=== PATIENT | female | born 1995 | race African-American/Black ===

== ENCOUNTER 2017-07-16 17:36 | Emergency (ER) | payer SELFPAY ==
[2017-07-16 18:13] LABS: Bilirubin Negative (Negative); Blood, Urine Negative (Negative); Glucose, Urine (Dipstick) Negative (Negative); Ketone, Urine Negative (Negative); Nitrite Negative (Negative); Protein, Urine (Dipstick) 30 mg/dL (Neg-Trace); Urobilinogen 0.2 mg/dL (0.2-1.0)
[2017-07-16 18:15] LABS: Bacteria/HPF 1+ HPF (None Seen); Hyaline Casts/LPF 0-3 HYALINE CAST LPF (0-3 Hyaline); RBC/HPF 0-3 HPF (0-3); WBC/HPF 0-3 HPF (0-3)
== END 2017-07-16 19:00 | disposition home or self-care (01) ==
LOC: ERS 17:36
DX: M54.5 Low back pain (principal); V43.52XA Car driver injured in collision with other type car in traffic accident, initial encounter
CPT/HCPCS: 81003; 81015; 81025; 99284

== ENCOUNTER 2018-12-01 15:42 | Inpatient (IN) | payer OTHER ==
--- NOTE | 2018-12-01 17:03 | PDOC.FPROB ---
FMR OB H&P: HPI - History of Present Illness Chief Complaint: Elevated BPs at [facility] Indentification: 23yo @35.4wk by 8.2wk US History of Present Illness: 23yo @35.4wk by 8.2wk US presents for elevated BPs at [facility] appt today. BPs in clinic: 140/90, 140, 92. Urine remarkable for trace protein. No hx of HTN. She endorses new hand edema, difficulty putting rings on as well as foot edema to midshin. She has had a 38lb wt gain this . Fundal height today 40. She had a growth US at [facility] at 74% for expected age. Primary Care Physician: Dr Louis FMR OB H&P: Current - Care : 1 Para: 0 Gestational age: 35.4wks Dating Criteria: 8.2wk US Total weight gain: 38lb - OB Labs Blood type: unknown RH: unknown Antibody Screen: unknown HIV: unknown RPR: unknown HepBsAg: unknown Quad screen: unknown Urine drug screen: not done (no records) Gonorrhea: unknown GBS: unknown - First Trimester Ultrasound First trimester: 8.2wks FMR OB H&P: History - Past Medical History PMH: denies - Surgical History Sx History: denies - Social History Social History: denies t/e/d - Family History Family History: HTN-Father FMR OB H&P: Medications - Current Home Medications: Medication Instructions Recorded Confirmed Type Pnv,Calcium 72/Iron/Folic Acid 1 capsule PO DAILY 12/01/18 12/01/18 History [ Plus Tablet] Ranitidine HCl 75 mg PO PRN PRN 12/01/18 12/01/18 History Allergies/Adverse Reactions: Allergies Allergy/AdvReac Type Severity Reaction Status Date / Time No Known Allergies Allergy Verified 12/01/18 18:08 FMR OB H&P: ROS - Review of Systems General: denies: fever/chills Eyes: denies: vision changes, double vision, scotomas, floaters Cardiovascular: reports: edema. denies: chest pain, palpitation Gastrointestinal: denies: abdominal pain Genitourinary (Female): denies: dysuria, vaginal pain, vaginal bleeding Neurologic: denies: seizures Breast: denies: skin changes FMR OB H&P: Vital Signs - Heart Tones Variability: moderate Acceleration: present Deceleration: absent [place] contractions every: uterine irritability FMR OB H&P: Physical Exam - Physical Exam General: NAD, awake, alert and oriented HEENT: normocephalic and atraumatic, PERRLA, EOMI Neck: supple, FROM Heart: RRR, normal S1/S2 General: CTAB, no respiratory distress, no wheezing Abdomen: soft, gravid Neurological: DTR +4, no tremor, no focal deficit Skin: no rash, good tugor, capillary refill <2 seconds Lymphatic: no unusual bruising or bleeding Psychiatric: intact recent and remote memory, good judgement and insight, normal mood and affect FMR OB H&P: Results - Imaging Imaging: BPP 8/8, BANDAR 29 (polyhydramnios) FMR OB H&P: A/P - Problem List (1) Elevated blood pressure affecting in third trimester, antepartum Current Visit: Yes Status: Acute Code(s): O16.3 - UNSPECIFIED MATERNAL HYPERTENSION, THIRD TRIMESTER Disposition: 23yo @35.4wk by 8.2wk US Elevated BPs in 3T - No hx of HTN - Ordered CBC, CMP, Urine protein/Cr, Uric acid - BPs elevated on L&D: 142-162/79-90 sIUP -NST reactive: 140-150/min-mod/accels Polyhydramnios -BANDAR 29 -BPP 8/8 otherwise, vertex presentation GERD -Can continue home ranitidine Discussed w/ Dr. Shelton Discussion: Date/Time: 12/01/18 4513 This H&P was discussed with [] and [] who agree with the above documentation and plan. Addendum - Attending - Attending Attestation Date/Time: 12/02/18 3260 I personally evaluated the patient and discussed the management with Roberto Dennison, and Cody yesterday afternoon. I agree with the History, Examination, Assessment and Plan documented above with any addition or exceptions noted below.
[2018-12-01 18:33] LABS: #Monocytes 0.8 thou/uL (0.11-0.59); #Neutrophils 4.4 thou/uL (1.40-6.50); %Basophils 0.5 % (0.0-1.0); %Eosinophils 0.2 % (0.0-10.0); %Lymphocytes 27.8 % (21.0-51.0); %Monocytes 11.6 % (0.0-10.0); %Neutrophils 59.9 % (42.0-75.0); Hemoglobin 14.4 g/dL (12.0-16.0); Mean Corpuscular HGB CONC 33.2 g/dL (32.0-36.0); Mean Corpuscular Hemoglobin 31.8 pg (27.0-31.0); Mean Corpuscular Volume 95.6 fL (78.0-98.0); Mean Platelet Volume 8.3 fL (7.4-10.4); Platelet Count 195 thou/uL (130-400); RBC Distribution Width 13.5 % (11.5-14.5); Red Blood Cell (RBC) Count 4.53 mill/uL (4.20-5.40); White Blood Cell (WBC) Count 7.3 thou/uL (4.8-10.8)
[2018-12-01 18:34] LABS: Creatinine, Urine 65.82 mg/dL (47-110)
--- NOTE | 2018-12-01 18:49 | ULT ---
COMPLETE OB ULTRASOUND: HISTORY: Concern for LGA. PIH. FINDINGS: A single viable intrauterine fetus, in cephalic presentation. The placenta is anterior. Abnormal in creased amniotic fluid with an BANDAR of 29. Cervical length approximates 3 cm. anatomy was incompletely seen with visualized bladder, left kidney, three-vessel cord, fo ur-chamber heart, stomach, and right kidney. BIOMETRY: BPD: 8.6 cm (34 weeks 4 days). HEAD CIRCUMFERENCE: 31.2 cm (34 weeks 6 days). ABDOMINAL CIRCUMFERENCE: 3.1 cm (35 weeks 0 days). FEMUR LENGTH: 6.8 cm (34 weeks 6 days). HEART RATE: 143 beats per minute. IMPRESSION: 1. Evidence for polyhydramnios with an elevated amniotic fluid index of 29 cm. Estimated weig ht 2554 g. Gestational age average 34 weeks 6 days. 2. Expected date of confinement 01/06/2019. 3. Estimated weight at the 32nd percentile. POS: [facility]
--- NOTE | 2018-12-01 18:50 | ULT ---
BIOPHYSICAL PROFILE ULTRASOUND: HISTORY: Concern for LGA. Polyhydramnios. FINDINGS: biophysical profile score equals 8/8. There is polyhydramnios with an amniotic fluid index of 29 cm. IMPRESSION: 1. Unremarkable biophysical profile score of 8/8. 2. Polyhydramnios (amniotic fluid index 29 cm). POS: [facility]
[2018-12-01 18:56] LABS: ALT (SGPT) 17 U/L (8-55); AST (SGOT) 18 U/L (5-34); Albumin 3.1 g/dL (3.5-5.0); Alkaline Phosphatase 141 U/L (40-150); Anion Gap 13 mmol/L (10-20); BUN (Urea Nitrogen) 7 mg/dL (7.0-18.7); Bilirubin, Total 0.2 mg/dL (0.2-1.2); Calc. Creatinine Clearance 0 mL/min (70-130); Calcium 9.6 mg/dL (7.8-10.44); Carbon Dioxide 26 mmol/L (22-29); Chloride 104 mmol/L (98-107); Estimated GFR-MDRD Greater than 90; Globulin 3.1 g/dL (2.4-3.5); Glucose 80 mg/dL (70-105); Protein, Total 6.2 g/dL (6.0-8.3); Sodium 139 mmol/L (136-145)
[2018-12-01] MEDS ORDERED: Labetalol HCl 100 MG/20 ML VIAL SLOW IVP PRN (20:09)
--- NOTE | 2018-12-01 20:13 | PDOC.EVN ---
Event Note - Event Note Event Note: Labs negative for signs of end organ damage per CBC, CMP. Uric acid 5.6. Urine pr/cr ratio 0.22. Initially there were two severe range pressure SBP >160, but since then have all been <160/<110, with no need for antihypertensive administration. Patient reports no symptoms sich as MALAGON, Abd pain, visual federico, or SOB. Due to elevated pressures and borderline Prto/Creatinine ratio will admit for obs for 24 hr urine protein collection with continued monitoring of pressure & qshift NST. She does not meet criteria for preeclampsia. Her current diagnosis is Gestational Hypertension. Pre-E eval continues. Patient agrees with plan.
[2018-12-01] MEDS ORDERED: Famotidine 20 MG TAB PO SCH (23:45)
[2018-12-02 00:35] VITALS: BMI 42.3
--- NOTE | 2018-12-02 10:48 | PDOC.FM ---
- Subjective Subjective: ITZ overnight. Pts bp remains in the 140s-150s w/o severe range pressures. She denies NVDC, cp, sob, headache, changes in vision, RUQ/epigastric pain. Reports pos movement, denies ctx, LOF and vaginal bleeding. - Objective MAR Reviewed: Yes Vital Signs & Weight: Vital Signs (12 hours) Temp Pulse Resp BP BP Pulse Ox 12/02/18 08:00 98.6 F 84 16 152/67 H 98 12/02/18 07:00 98.6 F 84 16 152/67 H 98 12/02/18 04:00 97.8 F 80 18 142/88 H 12/01/18 23:25 98.2 F 91 18 137/73 Weight Weight 101.605 kg I&O: 12/01/18 12/02/18 12/03/18 06:59 06:59 06:59 Intake Total 840 Output Total 790 1200 Balance -790 -360 Result Diagrams: 12/01/18 18:22 12/01/18 18:22 Phys Exam - Physical Examination Constitutional: NAD HEENT: PERRLA, moist MMs, sclera anicteric Neck: no JVD Respiratory: no wheezing, no rales, no rhonchi, clear to auscultation bilateral Cardiovascular: RRR, no significant murmur, no rub Gastrointestinal: soft, non-tender, no distention, positive bowel sounds Musculoskeletal: pulses present, edema present (trace) Neurological: normal sensation, moves all 4 limbs DTRs 3+ Psychiatric: normal affect Skin: no rash, cap refill <2 seconds Dx/Plan (1) Elevated blood pressure affecting in third trimester, antepartum Code(s): O16.3 - UNSPECIFIED MATERNAL HYPERTENSION, THIRD TRIMESTER Status: Acute - Plan Plan: - concern fpr preeclampsia - lab workup negative - 24 hour urine protein pending - uric acid 5.6, will repeat today - will continue to monitor pressures Dispo: stable, PIH vs preeclampsia, cont to monitor pressures and recheck uric acid. Pt has good dates and is candidate for delivery should severe features present. Addendum - Attending - Attending Attestation Date/Time: 12/02/18 6779 I personally evaluated the patient and discussed the management with Dr. Ayon and team. I agree with and repeated the History, Examination, Assessment and Plan documented above with any addition or exceptions noted below. No severe symptoms or pressures. Awaiting 24h urine. On exam 1 beat clonus and brisk reflexes.
[2018-12-02 22:25] LABS: Urine Total Volume 2325 mL (600-1600)
[2018-12-02 22:47] LABS: Protein - 24 Hr 279 mg/24 hr (Less than 300); Protein, Urine 12 mg/dL (1-14)
[2018-12-03] MEDS: Magnesium Sulfate 20 gm/500 ml 20 GM/500 ML BAG IVPB SCH ×2 (00:01→22:24)
--- NOTE | 2018-12-03 03:18 | PDOC.EVN ---
Event Note - Event Note Event Note: Informed that urine had spilled, in attempt to recollect urine that was lost by extending collection period for a total of 24 true hours of collection, results had already returned. 24 hour urine protein collection restarted on 12/03 @0100 Also it was noticed that pt had two severe range pressure 160/82, 160/81. Residents were not notified. Order was given for repeat which was 130/78, retaken 3 times. Patient asx at this time. NST read at 0100 was reactive. Will continue to monitor BPs and clinical status.
--- NOTE | 2018-12-03 07:41 | PDOC.FM ---
- Subjective Subjective: Multiple event overnight. Urine protein had to be recollected due to inadequate sample. 2 BP of 160/82 and 160/81 was measured 4 hours apart. MDs were not notified of this until incidence passed and BP had normalized spontaneously. No labetolol was given. Patient was asymptomatic when notified. - Objective MAR Reviewed: Yes Vital Signs & Weight: Vital Signs (12 hours) Temp Pulse Resp BP BP Pulse Ox 12/03/18 06:37 98.0 F 83 17 141/79 H 12/03/18 02:43 97.9 F 72 18 130/78 12/02/18 23:30 98.2 F 80 19 160/81 H 12/02/18 20:00 98.3 F 80 19 154/81 H 99 Weight Weight 101.605 kg I&O: 12/02/18 12/03/18 12/04/18 06:59 06:59 06:59 Intake Total 3200 Output Total 790 2850 Balance -790 350 Result Diagrams: 12/03/18 07:57 12/03/18 07:57 Phys Exam - Physical Examination Constitutional: NAD HEENT: sclera anicteric Neck: no nodes, supple Respiratory: no wheezing, no rales, no rhonchi, clear to auscultation bilateral Cardiovascular: RRR, no significant murmur Gastrointestinal: soft, no distention, positive bowel sounds Musculoskeletal: no edema, edema present (trace) Neurological: non-focal, moves all 4 limbs No clonus Lymphatic: no nodes Psychiatric: normal affect Dx/Plan (1) Elevated blood pressure affecting in third trimester, antepartum Code(s): O16.3 - UNSPECIFIED MATERNAL HYPERTENSION, THIRD TRIMESTER Status: Acute - Plan Plan: BP concerning for preeclampsia with severe feature, but which has resolved by time MDs notified last night Labwork currently negative, though 24 hour urine protien still pending Repeat uric acid 5.6, same as previous value. Plan to continue to monitor pressure. Consider induction as patient while not currently severe pre-eclampsia, may head that way. Addendum - Attending - Attending Attestation Date/Time: 12/03/18 1007 I personally evaluated the patient and discussed the management with Dr. Marie. I agree with and repeated the History, Examination, Assessment and Plan documented above with any addition or exceptions noted below. Patient with no severe symptoms. She does continue to have clonus, however. Her BP's were elevated in the severe range and not reported overnight, and she now has a third in the 170s that was when she was resting comfortably. I feel she should be delivered due to her persistently elevated blood pressures. I have reviewed the case in detail with Dr. Perez who agree with transfer, magnesium and induction. I have also discussed the case in detail with neonatology due to the census of our NICU and he feels it is appropriate to deliver here. Plan for mag, confirmation of cephalic presentation, betamethason, SVE and likely cervical ripening. Labetalol PRN BP >= 160/110. Seizure precautions and mag checks if indicated. I have discussed this in detail with the patient, including risk of morbidity to her, her baby, risk of need for NICU care, and transfer after delivery as a possibility. She voices understanding and desires to proceed.
[2018-12-03 08:03] LABS: #Basophils 0.1 thou/uL (0.0-0.2); #Lymphocytes 2.6 thou/uL (1.20-3.40); #Monocytes 0.9 thou/uL (0.11-0.59); #Neutrophils 5.8 thou/uL (1.40-6.50); %Basophils 0.8 % (0.0-1.0); %Eosinophils 0.4 % (0.0-10.0); %Lymphocytes 27.7 % (21.0-51.0); %Monocytes 9.6 % (0.0-10.0); %Neutrophils 61.6 % (42.0-75.0); Mean Corpuscular Hemoglobin 31.8 pg (27.0-31.0); Mean Corpuscular Volume 96.3 fL (78.0-98.0); Mean Platelet Volume 8.3 fL (7.4-10.4); Platelet Count 192 thou/uL (130-400); RBC Distribution Width 13.6 % (11.5-14.5); Red Blood Cell (RBC) Count 5.03 mill/uL (4.20-5.40); White Blood Cell (WBC) Count 9.4 thou/uL (4.8-10.8)
[2018-12-03 08:25] LABS: ALT (SGPT) 17 U/L (8-55); AST (SGOT) 17 U/L (5-34); Albumin 3.3 g/dL (3.5-5.0); Alkaline Phosphatase 156 U/L (40-150); Anion Gap 12 mmol/L (10-20); BUN (Urea Nitrogen) 6 mg/dL (7.0-18.7); Bilirubin, Total 0.2 mg/dL (0.2-1.2); Calc. Creatinine Clearance 187 mL/min (70-130); Calcium 9.6 mg/dL (7.8-10.44); Carbon Dioxide 29 mmol/L (22-29); Chloride 104 mmol/L (98-107); Estimated GFR-MDRD Greater than 90; Globulin 3.4 g/dL (2.4-3.5); Glucose 79 mg/dL (70-105); Potassium 4.6 mmol/L (3.5-5.1); Protein, Total 6.7 g/dL (6.0-8.3); Sodium 140 mmol/L (136-145)
[2018-12-03] MEDS ORDERED: Betamet Acet/Betamet Na Ph 30 MG/5 ML VIAL ONE (12:02)
[2018-12-03] MEDS ORDERED: Calcium Gluc 4.6 MEQ/10 ML (100 MG/ML) SLOW IVP PRN (12:04)
[2018-12-03] MEDS ORDERED: Magnesium Sulfate 20 GM/WATER 500 ML BAG IVPB SCH (12:04)
[2018-12-03] MEDS ORDERED: Ondansetron PF 4 MG/2 ML Vial IVP PRN (12:04)
[2018-12-03] MEDS ORDERED: Penicillin G Potassium 5 MILL.UNITS in Sodium Chloride 0.9% 100 ML IVPB SCH (12:04)
[2018-12-03] MEDS ORDERED: Promethazine HCl 25 MG/ML VIAL IM PRN (12:04)
[2018-12-03] MEDS: Betamet Acet/Betamet Na Ph 30 MG/5 ML VIAL IM SCH (12:15)
[2018-12-03 12:38] LABS: Hemoglobin 14.6 g/dL (12.0-16.0); Mean Corpuscular HGB CONC 33.2 g/dL (32.0-36.0); Mean Corpuscular Volume 96.4 fL (78.0-98.0); Mean Platelet Volume 8.2 fL (7.4-10.4); Platelet Count 179 thou/uL (130-400); RBC Distribution Width 13.6 % (11.5-14.5); Red Blood Cell (RBC) Count 4.57 mill/uL (4.20-5.40); White Blood Cell (WBC) Count 7.7 thou/uL (4.8-10.8)
[2018-12-03 13:11] LABS: HIV (1/2) Antibody/Antigen Non-Reactive (NonReactive); Hep B Surf Ag Non-Reactive S/CO (NonReactive); Syphilis Antibody Nonreactive (Nonreactive)
[2018-12-03] MEDS: Misoprostol 100 MCG TAB VAG SCH (14:00)
[2018-12-03] MEDS ORDERED: Pen G 2.5 MILL.UNITS/50 ML BAG IVPB SCH (17:00)
[2018-12-03] MEDS: Penicillin G Potassium 2.5 MILL.UNITS in Sodium Chloride 0.9% 50 ML IVPB SCH ×2 (17:45→22:05)
--- NOTE | 2018-12-03 19:08 | PDOC.OBMPN ---
FMR OB LDICU PN: Subj - Interval History Chief Complaint: Elevated Blood Pressures Interval History: Pt reports doing well. Having no SOB. Denies any dizziness or lightheadness FMR OB LDICU PN: Obj - Maternal Vital signs: BP: [151/80] HR: [89] RR: [18] Tmax: [98.3] Pox: [100]% on [RA] Wt: [101.6 kg ] - Urine output I&O: 12/02/18 12/03/18 12/04/18 06:59 06:59 06:59 Intake Total 3200 240 Output Total 790 2850 600 Balance -790 350 -360 - Heart Tones Baseline: 130 Variability: moderate Acceleration: present Deceleration: absent Category: category 1 [place] contractions every: 2-4 minutes FMR OB LDICU PN: Exam - Physical Exam General: NAD, awake, alert and oriented HEENT: normocephalic and atraumatic Heart: RRR, normal S1/S2, no murmurs/rubs/gallops General: CTAB, no respiratory distress, good air movement, no rales/rhonchi, no wheezing Abdomen: soft, gravid Musculoskeletal: pulses present, FROM in all four extremities Neurological: sensation to pain,touch and proprioception grossly normal, DTR +2 Skin: no rash, capillary refill <2 seconds R OB LDICU PN: Data - Labs Lab results: Laboratory Results - last 24 hr 12/02/18 12/03/18 12/03/18 21:30 07:57 07:57 WBC 9.4 RBC 5.03 Hgb 16.0 Hct 48.4 H MCV 96.3 MCH 31.8 H MCHC 33.0 RDW 13.6 Plt Count 192 MPV 8.3 Neutrophils % 61.6 Lymphocytes % 27.7 Monocytes % 9.6 Eosinophils % 0.4 Basophils % 0.8 Neutrophils # 5.8 Lymphocytes # 2.6 Monocytes # 0.9 H Eosinophils # 0.0 Basophils # 0.1 Sodium 140 Potassium 4.6 Chloride 104 Carbon Dioxide 29 Anion Gap 12 BUN 6 L Creatinine 0.75 Estimated GFR (MDRD) Greater than 90 Glucose 79 Calcium 9.6 Total Bilirubin 0.2 AST 17 ALT 17 Alkaline Phosphatase 156 H Serum Total Protein 6.7 Albumin 3.3 L Globulin 3.4 Albumin/Globulin Ratio 1.0 L Urine Protein 12 Ur Collection Duration 24 Urine Total Volume 2325 H U Tot Protein 24h, Calc 279 Syphilis IgG/IgM Ab Hep Bs Antigen HIV 1&2 Antigen & Ab Blood Type Antibody Screen 12/03/18 12/03/18 12/03/18 12:24 12:24 12:24 WBC RBC Hgb Hct MCV MCH MCHC RDW Plt Count MPV Neutrophils % Lymphocytes % Monocytes % Eosinophils % Basophils % Neutrophils # Lymphocytes # Monocytes # Eosinophils # Basophils # Sodium Potassium Chloride Carbon Dioxide Anion Gap BUN Creatinine Estimated GFR (MDRD) Glucose Calcium Total Bilirubin AST ALT Alkaline Phosphatase Serum Total Protein Albumin Globulin Albumin/Globulin Ratio Urine Protein Ur Collection Duration Urine Total Volume U Tot Protein 24h, Calc Syphilis IgG/IgM Ab Nonreactive Hep Bs Antigen Non-Reactive HIV 1&2 Antigen & Ab Non-Reactive Blood Type A POSITIVE Antibody Screen NEGATIVE 12/03/18 12/03/18 12:24 17:28 WBC 7.7 RBC 4.57 Hgb 14.6 Hct 44.0 MCV 96.4 MCH 32.0 H MCHC 33.2 RDW 13.6 Plt Count 179 MPV 8.2 Neutrophils % Lymphocytes % Monocytes % Eosinophils % Basophils % Neutrophils # Lymphocytes # Monocytes # Eosinophils # Basophils # Sodium Potassium Chloride Carbon Dioxide Anion Gap BUN Creatinine Estimated GFR (MDRD) Glucose Calcium Total Bilirubin AST ALT Alkaline Phosphatase Serum Total Protein Albumin Globulin Albumin/Globulin Ratio Urine Protein Negative Ur Collection Duration Urine Total Volume U Tot Protein 24h, Calc Syphilis IgG/IgM Ab Hep Bs Antigen HIV 1&2 Antigen & Ab Blood Type Antibody Screen FMR OB LDICU PN:A/P - Problem List (1) Pre-eclampsia Current Visit: Yes Status: Acute Code(s): O14.90 - UNSPECIFIED PRE-ECLAMPSIA , UNSPECIFIED TRIMESTER (2) Current Visit: Yes Status: Acute Qualifiers: Weeks of gestation: 35 weeks Qualified Code(s): Z3A.35 - 35 weeks gestation of Disposition: 23yo @35.6wk by 8.2wk US here with Preeclampsia with Severe Range Pressures -Pt recieved cytotec for induction at 14:00. Cat 1 strip. Ctx still regluar. -Only one severe range pressure noted after cervical check. Labetolol ordered for severe range pressures if consistent -Pt durga regularly. Will hold on cytotec for now. -Will continue with mg checks q4 hrs. Discussion: Date/Time: 12/03/181905 This H&P was discussed with [] and [] who agree with the above documentation and plan. Addendum - Attending - Attending Attestation Date/Time: 12/04/18 1851 I personally evaluated the patient and discussed the management with team. I agree with the History, Examination, Assessment and Plan documented above with any addition or exceptions noted below. Induction indicated for preeclampsia with severe features/severe gestational hypertension. BTMZ for FLM, PCN for GBS+, mg for seizure ppx.
--- NOTE | 2018-12-03 19:59 | PDOC.EVN ---
Event Note - Event Note Event Note: 23yo @35.4wk by 8.2wk US being induced due to Preeclampsia with Severe Range BP Pt is resting comfortably. Denies any side effects at this time. Denies any dizziness, lightheadness, SOB. Denies any concerns at this time. -Pt was just given cytotec and started on magnesium at 14:00. -SVE @ 14:00 showed closed/thick/high. -Will continue with augmentation of labor Pt has had no recorded severe range BP since transfer for induction. labetolol ordered PRN. -Will continue with regluar q4 Mg checks from Mg administration start time.
[2018-12-03] MEDS: Penicillin G 2.5 MILL.units 50 ML ONE (22:03)
--- NOTE | 2018-12-03 22:17 | PDOC.OBMPN ---
FMR OB LDICU PN: Subj - Interval History Interval History: Pt doing well. Pt reports feeling ctx in back and pelvis. Rates 3-4 FMR OB LDICU PN: Obj - Maternal Vital signs: BP: [131/75] HR: [114] RR: [18] Tmax: [98.7] - Urine output I&O: 12/02/18 12/03/18 12/04/18 06:59 06:59 06:59 Intake Total 3200 240 Output Total 790 2850 600 Balance -790 350 -360 - Heart Tones Baseline: 130 Variability: moderate Acceleration: absent Deceleration: absent Category: category 1 [place] contractions every: 2 FMR OB LDICU PN: Exam - Physical Exam General: NAD, awake, alert and oriented HEENT: normocephalic and atraumatic Heart: RRR, normal S1/S2, no murmurs/rubs/gallops, no edema General: CTAB, no respiratory distress, no wheezing Musculoskeletal: FROM in all four extremities Neurological: sensation to pain,touch and proprioception grossly normal, DTR +2 Skin: no rash Psychiatric: intact recent and remote memory, good judgement and insight, normal mood and affect FMR OB LDICU PN: Data - Labs Lab results: Laboratory Results - last 24 hr 12/02/18 12/03/18 12/03/18 21:30 07:57 07:57 WBC 9.4 RBC 5.03 Hgb 16.0 Hct 48.4 H MCV 96.3 MCH 31.8 H MCHC 33.0 RDW 13.6 Plt Count 192 MPV 8.3 Neutrophils % 61.6 Lymphocytes % 27.7 Monocytes % 9.6 Eosinophils % 0.4 Basophils % 0.8 Neutrophils # 5.8 Lymphocytes # 2.6 Monocytes # 0.9 H Eosinophils # 0.0 Basophils # 0.1 Sodium 140 Potassium 4.6 Chloride 104 Carbon Dioxide 29 Anion Gap 12 BUN 6 L Creatinine 0.75 Estimated GFR (MDRD) Greater than 90 Glucose 79 Calcium 9.6 Total Bilirubin 0.2 AST 17 ALT 17 Alkaline Phosphatase 156 H Serum Total Protein 6.7 Albumin 3.3 L Globulin 3.4 Albumin/Globulin Ratio 1.0 L Urine Protein 12 Ur Collection Duration 24 Urine Total Volume 2325 H U Tot Protein 24h, Calc 279 Syphilis IgG/IgM Ab Hep Bs Antigen HIV 1&2 Antigen & Ab Blood Type Antibody Screen 12/03/18 12/03/18 12/03/18 12:24 12:24 12:24 WBC RBC Hgb Hct MCV MCH MCHC RDW Plt Count MPV Neutrophils % Lymphocytes % Monocytes % Eosinophils % Basophils % Neutrophils # Lymphocytes # Monocytes # Eosinophils # Basophils # Sodium Potassium Chloride Carbon Dioxide Anion Gap BUN Creatinine Estimated GFR (MDRD) Glucose Calcium Total Bilirubin AST ALT Alkaline Phosphatase Serum Total Protein Albumin Globulin Albumin/Globulin Ratio Urine Protein Ur Collection Duration Urine Total Volume U Tot Protein 24h, Calc Syphilis IgG/IgM Ab Nonreactive Hep Bs Antigen Non-Reactive HIV 1&2 Antigen & Ab Non-Reactive Blood Type A POSITIVE Antibody Screen NEGATIVE 12/03/18 12/03/18 12:24 17:28 WBC 7.7 RBC 4.57 Hgb 14.6 Hct 44.0 MCV 96.4 MCH 32.0 H MCHC 33.2 RDW 13.6 Plt Count 179 MPV 8.2 Neutrophils % Lymphocytes % Monocytes % Eosinophils % Basophils % Neutrophils # Lymphocytes # Monocytes # Eosinophils # Basophils # Sodium Potassium Chloride Carbon Dioxide Anion Gap BUN Creatinine Estimated GFR (MDRD) Glucose Calcium Total Bilirubin AST ALT Alkaline Phosphatase Serum Total Protein Albumin Globulin Albumin/Globulin Ratio Urine Protein Negative Ur Collection Duration Urine Total Volume U Tot Protein 24h, Calc Syphilis IgG/IgM Ab Hep Bs Antigen HIV 1&2 Antigen & Ab Blood Type Antibody Screen FMR OB LDICU PN:A/P - Problem List (1) Pre-eclampsia Current Visit: Yes Status: Acute Code(s): O14.90 - UNSPECIFIED PRE-ECLAMPSIA , UNSPECIFIED TRIMESTER (2) Current Visit: Yes Status: Acute Qualifiers: Weeks of gestation: 36 weeks Qualified Code(s): Z3A.36 - 36 weeks gestation of Disposition: 23yo @35.6wk by 8.2wk US here with Preeclampsia with Severe Range Pressures -Pt recieved cytotec for induction at 14:00. Cat 1 strip. FHR 130. Few accelerations noted but no variables or decels noted. Ctx still regluar every 2 min. -No severe range pressures noted. Labetolol ordered for severe range pressures if consistent -Pt durga regularly and pt reports feeling ctx in Back and lower pelvis. Will hold repeat cytotec for now. -Will continue with mg checks q4 hrs. Discussion: Date/Time: 12/03/18 4345 This H&P was discussed with [] and [] who agree with the above documentation and plan. Addendum - Attending - Attending Attestation Date/Time: 12/04/18 7248 I personally evaluated the patient and discussed the management with Dr. Marie and team. I agree with the History, Examination, Assessment and Plan documented above with any addition or exceptions noted below.
[2018-12-04] MEDS ORDERED: Calcium Carbonate 500 MG ChewTAB PO PRN
--- NOTE | 2018-12-04 00:46 | PDOC.OBMPN ---
[facility] PN: Subj - Interval History Interval History: increased pain on contractions. no cp/sob/MALAGON [facility] PN: Obj - Maternal Vital signs: BP: wnl, HR 125, RR 10 - Urine output I&O: 12/02/18 12/03/18 12/04/18 06:59 06:59 06:59 Intake Total 3200 240 Output Total 790 2850 600 Balance -790 350 -360 - Heart Tones Baseline: 125 Variability: moderate Acceleration: absent Deceleration: absent Category: category 1 [facility] PN: Exam - Physical Exam General: NAD, awake, alert and oriented HEENT: EOMI, grossly normal vision, grossly normal hearing Heart: normal S1/S2, other (tachycardic, regular rhythm) General: CTAB, no respiratory distress Abdomen: soft, gravid Neurological: DTR +2 Skin: no rash, good tugor [facility] PN: Data - Labs Lab results: Laboratory Results - last 24 hr 12/03/18 12/03/18 12/03/18 07:57 07:57 12:24 WBC 9.4 RBC 5.03 Hgb 16.0 Hct 48.4 H MCV 96.3 MCH 31.8 H MCHC 33.0 RDW 13.6 Plt Count 192 MPV 8.3 Neutrophils % 61.6 Lymphocytes % 27.7 Monocytes % 9.6 Eosinophils % 0.4 Basophils % 0.8 Neutrophils # 5.8 Lymphocytes # 2.6 Monocytes # 0.9 H Eosinophils # 0.0 Basophils # 0.1 Sodium 140 Potassium 4.6 Chloride 104 Carbon Dioxide 29 Anion Gap 12 BUN 6 L Creatinine 0.75 Estimated GFR (MDRD) Greater than 90 Glucose 79 Calcium 9.6 Total Bilirubin 0.2 AST 17 ALT 17 Alkaline Phosphatase 156 H Serum Total Protein 6.7 Albumin 3.3 L Globulin 3.4 Albumin/Globulin Ratio 1.0 L Urine Protein Syphilis IgG/IgM Ab Hep Bs Antigen Non-Reactive HIV 1&2 Antigen & Ab Non-Reactive Blood Type Antibody Screen 12/03/18 12/03/18 12/03/18 12:24 12:24 12:24 WBC 7.7 RBC 4.57 Hgb 14.6 Hct 44.0 MCV 96.4 MCH 32.0 H MCHC 33.2 RDW 13.6 Plt Count 179 MPV 8.2 Neutrophils % Lymphocytes % Monocytes % Eosinophils % Basophils % Neutrophils # Lymphocytes # Monocytes # Eosinophils # Basophils # Sodium Potassium Chloride Carbon Dioxide Anion Gap BUN Creatinine Estimated GFR (MDRD) Glucose Calcium Total Bilirubin AST ALT Alkaline Phosphatase Serum Total Protein Albumin Globulin Albumin/Globulin Ratio Urine Protein Syphilis IgG/IgM Ab Nonreactive Hep Bs Antigen HIV 1&2 Antigen & Ab Blood Type A POSITIVE Antibody Screen NEGATIVE 12/03/18 17:28 WBC RBC Hgb Hct MCV MCH MCHC RDW Plt Count MPV Neutrophils % Lymphocytes % Monocytes % Eosinophils % Basophils % Neutrophils # Lymphocytes # Monocytes # Eosinophils # Basophils # Sodium Potassium Chloride Carbon Dioxide Anion Gap BUN Creatinine Estimated GFR (MDRD) Glucose Calcium Total Bilirubin AST ALT Alkaline Phosphatase Serum Total Protein Albumin Globulin Albumin/Globulin Ratio Urine Protein Negative Syphilis IgG/IgM Ab Hep Bs Antigen HIV 1&2 Antigen & Ab Blood Type Antibody Screen [facility] PN:A/P Discussion: 23yo @35.6wk by 8.2wk US here with Preeclampsia with Severe Range Pressures -Doing well, Cat 1 strip. FHR 130. Ctx still regular -pt has been in sinus tachycardia for last hour, likely 2/2 increased pain w/ contractions, pt is asymptomatic -No severe range pressures noted. -Pt durga regularly and pt reports feeling ctx in Back and lower pelvis. Will hold repeat cytotec for now. -Will continue with mg checks q4 hrs. Addendum - Attending - Attending Attestation Date/Time: 12/04/18 6433 I personally evaluated the patient and discussed the management with Dr. Marie. I agree with and repeated the History, Examination, Assessment and Plan documented above with any addition or exceptions noted below. No severe symptoms. Continue to have clonus and brisk DTRs. Monitor closely. Maternal HR 120. No fever. Monitor pain.
[2018-12-04] MEDS: Misoprostol 100 MCG TAB VAG SCH (00:57)
[2018-12-04] MEDS: Lactated Ringer's 1,000 ML IV SCH ×3 (00:58→23:20)
[2018-12-04] MEDS: Famotidine 20 MG TAB PO SCH (01:25)
[2018-12-04] MEDS ORDERED: Penicillin G 2.5 MILL.units 50 ML ONE ×2 (02:03→06:43)
[2018-12-04] MEDS: Penicillin G 2.5 MILL.units 50 ML ONE (02:06)
--- NOTE | 2018-12-04 05:45 | PDOC.OBMPN ---
[facility] PN: Subj - Interval History Chief Complaint: elevated BP Interval History: Pt reports doing well. Feeling pain. No SOB or chest Pain [facility] PN: Obj - Maternal Vital signs: BP: [142/80] HR: [122] RR: [18] Tmax: [98.3] Pox: [99]% on RA - Urine output I&O: 12/02/18 12/03/18 12/04/18 06:59 06:59 06:59 Intake Total 3200 240 Output Total 790 2850 600 Balance -790 350 -360 - Heart Tones Baseline: 130 Variability: moderate Acceleration: absent Deceleration: absent Category: category 1 [place] contractions every: 2-4 minutes [facility] PN: Exam - Physical Exam General: NAD, awake, alert and oriented HEENT: normocephalic and atraumatic Neck: supple, trachea midline Heart: RRR, normal S1/S2, no murmurs/rubs/gallops, pulses present, no edema General: CTAB, no respiratory distress, good air movement, no rales/rhonchi, no wheezing Abdomen: soft, gravid, fundus(cm), bowel sound present Musculoskeletal: FROM in all four extremities Neurological: sensation to pain,touch and proprioception grossly normal, DTR +2 Skin: no rash Psychiatric: intact recent and remote memory, good judgement and insight, normal mood and affect [facility] PN: Data - Labs Lab results: Laboratory Results - last 24 hr 12/03/18 12/03/18 12/03/18 07:57 07:57 12:24 WBC 9.4 RBC 5.03 Hgb 16.0 Hct 48.4 H MCV 96.3 MCH 31.8 H MCHC 33.0 RDW 13.6 Plt Count 192 MPV 8.3 Neutrophils % 61.6 Lymphocytes % 27.7 Monocytes % 9.6 Eosinophils % 0.4 Basophils % 0.8 Neutrophils # 5.8 Lymphocytes # 2.6 Monocytes # 0.9 H Eosinophils # 0.0 Basophils # 0.1 Sodium 140 Potassium 4.6 Chloride 104 Carbon Dioxide 29 Anion Gap 12 BUN 6 L Creatinine 0.75 Estimated GFR (MDRD) Greater than 90 Glucose 79 Calcium 9.6 Total Bilirubin 0.2 AST 17 ALT 17 Alkaline Phosphatase 156 H Serum Total Protein 6.7 Albumin 3.3 L Globulin 3.4 Albumin/Globulin Ratio 1.0 L Urine Protein Syphilis IgG/IgM Ab Hep Bs Antigen Non-Reactive HIV 1&2 Antigen & Ab Non-Reactive Blood Type Antibody Screen 12/03/18 12/03/18 12/03/18 12:24 12:24 12:24 WBC 7.7 RBC 4.57 Hgb 14.6 Hct 44.0 MCV 96.4 MCH 32.0 H MCHC 33.2 RDW 13.6 Plt Count 179 MPV 8.2 Neutrophils % Lymphocytes % Monocytes % Eosinophils % Basophils % Neutrophils # Lymphocytes # Monocytes # Eosinophils # Basophils # Sodium Potassium Chloride Carbon Dioxide Anion Gap BUN Creatinine Estimated GFR (MDRD) Glucose Calcium Total Bilirubin AST ALT Alkaline Phosphatase Serum Total Protein Albumin Globulin Albumin/Globulin Ratio Urine Protein Syphilis IgG/IgM Ab Nonreactive Hep Bs Antigen HIV 1&2 Antigen & Ab Blood Type A POSITIVE Antibody Screen NEGATIVE 12/03/18 17:28 WBC RBC Hgb Hct MCV MCH MCHC RDW Plt Count MPV Neutrophils % Lymphocytes % Monocytes % Eosinophils % Basophils % Neutrophils # Lymphocytes # Monocytes # Eosinophils # Basophils # Sodium Potassium Chloride Carbon Dioxide Anion Gap BUN Creatinine Estimated GFR (MDRD) Glucose Calcium Total Bilirubin AST ALT Alkaline Phosphatase Serum Total Protein Albumin Globulin Albumin/Globulin Ratio Urine Protein Negative Syphilis IgG/IgM Ab Hep Bs Antigen HIV 1&2 Antigen & Ab Blood Type Antibody Screen [facility] PN:A/P - Problem List (1) Pre-eclampsia Current Visit: Yes Status: Acute Code(s): O14.90 - UNSPECIFIED PRE-ECLAMPSIA , UNSPECIFIED TRIMESTER (2) Current Visit: Yes Status: Acute Qualifiers: Weeks of gestation: 36 weeks Qualified Code(s): Z3A.36 - 36 weeks gestation of Disposition: 23yo @36wk by 8.2wk US here with Preeclampsia with Severe Range Pressures -Doing well, Cat 1-2 strip. Moderate Variability. At times baby has periods w/o accelerations. FHR 130. Ctx still regular. -pt has been in sinus tachycardia for the last few hours. likely 2/2 increased pain w/ contractions, pt is asymptomatic. No swelling, chest pain or SOB. No fevers noted. -No severe range pressures noted. -SVE @ 5:25 5-6/80/High. Pt continues to make progress. No need for augmentation at this time. -Will continue with mg checks q4 hrs. Discussion: Date/Time: 12/04/18 3024 This H&P was discussed with [] and [] who agree with the above documentation and plan. Addendum - Attending - Attending Attestation Date/Time: 12/04/18 4290 I personally evaluated the patient and discussed the management with Dr. Marie. I agree with the History, Examination, Assessment and Plan documented above with any addition or exceptions noted below. Patient just recently SROM'd with a deceleration and is now back to baseline with the lower end of moderate variability. 6-7 cm per RN. Monitor closely.
--- NOTE | 2018-12-04 07:28 | PDOC.OBMPN ---
[facility] PN: Subj - Interval History Hospital Day: 3 Chief Complaint: elevated BP, now pre-e with severe features Interval History: Patient state she feels well. Deny MALAGON, vision change, new edema, SOB. [facility] PN: Obj - Maternal Vital signs: BP: [151/89] HR: [89] RR: [18] Tmax: [98.5] Pox: [100]% on [RA] Wt: [101 kg] - Urine output I&O: 12/03/18 12/04/18 12/05/18 06:59 06:59 06:59 Intake Total 3200 240 Output Total 2850 600 Balance 350 -360 - Heart Tones Baseline: 135 Variability: minimal Acceleration: present Deceleration: absent Category: category 2 [facility] PN: Exam - Physical Exam General: NAD (Cervical check 5/75/-1 at 530 on 12/04), awake, alert and oriented HEENT: normocephalic and atraumatic, conjunctiva clear Neck: supple, trachea midline Heart: RRR, normal S1/S2, no murmurs/rubs/gallops, pulses present General: CTAB, no respiratory distress, good air movement, no rales/rhonchi Abdomen: soft, gravid, bowel sound present Neurological: DTR +2 Skin: no rash [facility] PN: Data - Labs Lab results: Laboratory Results - last 24 hr 12/03/18 12/03/18 12/03/18 07:57 07:57 12:24 WBC 9.4 RBC 5.03 Hgb 16.0 Hct 48.4 H MCV 96.3 MCH 31.8 H MCHC 33.0 RDW 13.6 Plt Count 192 MPV 8.3 Neutrophils % 61.6 Lymphocytes % 27.7 Monocytes % 9.6 Eosinophils % 0.4 Basophils % 0.8 Neutrophils # 5.8 Lymphocytes # 2.6 Monocytes # 0.9 H Eosinophils # 0.0 Basophils # 0.1 Sodium 140 Potassium 4.6 Chloride 104 Carbon Dioxide 29 Anion Gap 12 BUN 6 L Creatinine 0.75 Estimated GFR (MDRD) Greater than 90 Glucose 79 Calcium 9.6 Total Bilirubin 0.2 AST 17 ALT 17 Alkaline Phosphatase 156 H Serum Total Protein 6.7 Albumin 3.3 L Globulin 3.4 Albumin/Globulin Ratio 1.0 L Urine Protein Syphilis IgG/IgM Ab Hep Bs Antigen Non-Reactive HIV 1&2 Antigen & Ab Non-Reactive Blood Type Antibody Screen 12/03/18 12/03/18 12/03/18 12:24 12:24 12:24 WBC 7.7 RBC 4.57 Hgb 14.6 Hct 44.0 MCV 96.4 MCH 32.0 H MCHC 33.2 RDW 13.6 Plt Count 179 MPV 8.2 Neutrophils % Lymphocytes % Monocytes % Eosinophils % Basophils % Neutrophils # Lymphocytes # Monocytes # Eosinophils # Basophils # Sodium Potassium Chloride Carbon Dioxide Anion Gap BUN Creatinine Estimated GFR (MDRD) Glucose Calcium Total Bilirubin AST ALT Alkaline Phosphatase Serum Total Protein Albumin Globulin Albumin/Globulin Ratio Urine Protein Syphilis IgG/IgM Ab Nonreactive Hep Bs Antigen HIV 1&2 Antigen & Ab Blood Type A POSITIVE Antibody Screen NEGATIVE 12/03/18 17:28 WBC RBC Hgb Hct MCV MCH MCHC RDW Plt Count MPV Neutrophils % Lymphocytes % Monocytes % Eosinophils % Basophils % Neutrophils # Lymphocytes # Monocytes # Eosinophils # Basophils # Sodium Potassium Chloride Carbon Dioxide Anion Gap BUN Creatinine Estimated GFR (MDRD) Glucose Calcium Total Bilirubin AST ALT Alkaline Phosphatase Serum Total Protein Albumin Globulin Albumin/Globulin Ratio Urine Protein Negative Syphilis IgG/IgM Ab Hep Bs Antigen HIV 1&2 Antigen & Ab Blood Type Antibody Screen [facility] PN:A/P - Problem List (1) Pre-eclampsia Current Visit: Yes Status: Acute Code(s): O14.90 - UNSPECIFIED PRE-ECLAMPSIA , UNSPECIFIED TRIMESTER Assessment and Plan: 23 @ 36 week by 8.2 wk US who developed pre-e with severe range pressure is being induced Cat strip 2 due to minimal variability Has no severe range pressure No sign of Mag toxicity (2) Current Visit: Yes Status: Acute Qualifiers: Weeks of gestation: 36 weeks Qualified Code(s): Z3A.36 - 36 weeks gestation of Assessment and Plan: Cervical check at 530 is /-1 No cytotec at moment Second dose of steroid at noon (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 Discussion: Date/Time: 12/04/18725 This H&P was discussed with [] and [] who agree with the above documentation and plan. Addendum - Attending - Attending Attestation Date/Time: 12/04/18 1212 I personally evaluated the patient and discussed the management with Dr. Gomez. I agree with the History, Examination, Assessment and Plan documented above with any addition or exceptions noted below.
[2018-12-04] MEDS: Magnesium Sulfate 20 gm/500 ml 20 GM/500 ML BAG IVPB SCH ×2 (07:52→19:20)
--- NOTE | 2018-12-04 09:50 | PDOC.OBMPN ---
[facility] PN: Subj - Interval History Interval History: Pt resting. Says ctx pain has gotten a little better. [facility] PN: Obj - Maternal Vital signs: BP: [131/65] HR: [111] RR: [18] Tmax: [98.3] Pox: [100]% on [RA] - Urine output I&O: 12/03/18 12/04/18 12/05/18 06:59 06:59 06:59 Intake Total 3200 240 Output Total 2850 600 Balance 350 -360 - Heart Tones Baseline: 130 Variability: moderate Acceleration: absent Deceleration: early Category: category 2 [place] contractions every: 6 minuntes [facility] PN: Exam - Physical Exam General: NAD, awake, alert and oriented HEENT: normocephalic and atraumatic Chest: non-tender to palpation Heart: RRR, normal S1/S2, no murmurs/rubs/gallops, pulses present, no edema General: CTAB, no respiratory distress, good air movement, no rales/rhonchi, no wheezing Abdomen: soft, non-tender, bowel sound present, no masses Musculoskeletal: FROM in all four extremities Neurological: sensation to pain,touch and proprioception grossly normal, DTR +2 Skin: no rash, capillary refill <2 seconds Lymphatic: no unusual bruising or bleeding Psychiatric: intact recent and remote memory, normal mood and affect [facility] PN: Data - Labs Lab results: Laboratory Results - last 24 hr 12/03/18 12/03/18 12/03/18 12:24 12:24 12:24 WBC RBC Hgb Hct MCV MCH MCHC RDW Plt Count MPV Urine Protein Syphilis IgG/IgM Ab Nonreactive Hep Bs Antigen Non-Reactive HIV 1&2 Antigen & Ab Non-Reactive Blood Type A POSITIVE Antibody Screen NEGATIVE 12/03/18 12/03/18 12:24 17:28 WBC 7.7 RBC 4.57 Hgb 14.6 Hct 44.0 MCV 96.4 MCH 32.0 H MCHC 33.2 RDW 13.6 Plt Count 179 MPV 8.2 Urine Protein Negative Syphilis IgG/IgM Ab Hep Bs Antigen HIV 1&2 Antigen & Ab Blood Type Antibody Screen [facility] PN:A/P - Problem List (1) Pre-eclampsia Current Visit: Yes Status: Acute Code(s): O14.90 - UNSPECIFIED PRE-ECLAMPSIA , UNSPECIFIED TRIMESTER (2) Current Visit: Yes Status: Acute Qualifiers: Weeks of gestation: 36 weeks Qualified Code(s): Z3A.36 - 36 weeks gestation of Disposition: 23yo @36wk by 8.2wk US here with Preeclampsia with Severe Range Pressures -Doing well, Cat 1-2 strip. Moderate Variability. Baby had period of minimal variability. Had early decel after recent SVE. Will add D5 to fluids at this time. -pt has continued to remain in sinus tachycardia for the last few hours. likely 2/2 increased pain w/ contractions, pt is asymptomatic. No swelling, chest pain or SOB. No fevers noted. -No severe range pressures noted. -SVE @ 9:45 6/100/-1 with fluid still present. More AROM performed and head came down. Applied IUPC at this time. Will assess ctx. Ctx have started to space out. Will likely start pitocin for augmentation of labor. -Will continue with mg checks q4 hrs. Discussion: Date/Time: 12/04/18 3947 This H&P was discussed with [] and [] who agree with the above documentation and plan. Addendum - Attending - Attending Attestation Date/Time: 12/04/18 1213 I personally evaluated the patient and discussed the management with Dr. Marie. I agree with the History, Examination, Assessment and Plan documented above with any addition or exceptions noted below. Please note moderate arabella, absent accels, early decels is category I.
[2018-12-04] MEDS ORDERED: Carboprost 250 MCG/ML AMP IM PRN (09:55)
[2018-12-04] MEDS ORDERED: Lidocaine 1% (PF) 30 ML VIAL SC PRN (09:55)
[2018-12-04] MEDS ORDERED: NS / Oxytocin 40 units/1000ml 1,000 ML IV PRN (09:55)
[2018-12-04] MEDS ORDERED: Methylergonovine 0.2 MG/ML VIAL IM PRN (09:55)
[2018-12-04] MEDS ORDERED: NS w/ Oxytocin 10 units 500 ML IV SCH ×2 (10:00)
[2018-12-04] MEDS ORDERED: Dextrose 5%-Lactated Ringers 1,000 ML IV SCH (10:00)
[2018-12-04] MEDS ORDERED: NS w/ Oxytocin 10 units 500 ML ONE (10:01)
[2018-12-04] MEDS: Pen G 2.5 MILL.UNITS/50 ML BAG IVPB SCH ×2 (11:22→14:59)
--- NOTE | 2018-12-04 11:54 | PDOC.LDPN ---
Labor & Delivery Progress Note - Subjective Subjective: vaginal pressure - Objective Vital signs reviewed and normal: yes General: resting, breathing through contractions Uterine fundus: non tender Dilation: 7 Effacement: 90% FHT: category 2 (120/minimal/accels with scalp stim) - Assessment (1) Elevated blood pressure affecting in third trimester, antepartum Code(s): O16.3 - UNSPECIFIED MATERNAL HYPERTENSION, THIRD TRIMESTER Current Visit: Yes Status: Acute Plan: continue plan of care, labor augmentation -: 23yo @36wk by 8.2wk US here with Preeclampsia with Severe Range Pressures -Doing well, Cat 1-2 strip. Minimal Variability but 15x15 accel with scalp stimulation which is reassuring -Pt has continued to remain in sinus tachycardia for the last few hours. likely 2/2 increased pain w/ contractions, pt is asymptomatic w/ no swelling, chest pain or SOB. No fevers noted. -No severe range pressures noted, and no requirement of labetalol -SVE @ 11:45 7.5/90/0, head more engaged, s/p SROM/AROM -CTX q2-4 min with adequate strength (>200 MVUs) -Continue Mg and PCN ppx, had received adequate dosing -Will recheck in 2 hours Mg check @1145 -Denies MALAGON, vision changes, chest pain -Reflexes 3+, hyperreflexive -RR adequate, CTAB -A&O x3 Discussed w/ Dr. Michel Addendum - Attending - Attending Attestation Date/Time: 12/04/18 8723 I personally evaluated the patient and discussed the management with Dr. Mejia. I agree with and repeated the History, Examination, Assessment and Plan documented above with any addition or exceptions noted below. Patient with intermittent minimal variability, but +accels to scalp stim. Will continue to actively manage for pitocin and observe.
[2018-12-04] MEDS: Betamet Acet/Betamet Na Ph 30 MG/5 ML VIAL IM SCH (11:57)
[2018-12-04] MEDS ORDERED: Ondansetron PF 4 MG/2 ML Vial ONE ×2 (12:57→16:47)
--- NOTE | 2018-12-04 13:51 | PDOC.LDPN ---
Labor & Delivery Progress Note - Subjective Subjective: comfortable, vaginal pressure, no concerns - Objective Vital signs reviewed and normal: yes General: NAD Dilation: 8 Effacement: 90% Station: 0 FHT: category 1, category 2 - Assessment (1) Elevated blood pressure affecting in third trimester, antepartum Code(s): O16.3 - UNSPECIFIED MATERNAL HYPERTENSION, THIRD TRIMESTER Current Visit: Yes Status: Acute Plan: continue plan of care -: 23yo @36wk by 8.2wk US here with Preeclampsia with Severe Range Pressures -Doing well, Cat 1-2 strip. Minimal-moderate. Variability but 15x15 accel with scalp stimulation which is reassurin -Pt has continued to remain in sinus tachycardia for the last few hours. likely 2/2 increased pain w/ contractions, pt is asymptomatic w/ no swelling, chest pain or SOB. No fevers noted. -No severe range pressures noted, and no requirement of labetalol -SVE @ 11:45 8/90/0, head more engaged, s/p SROM/AROM -CTX q2-4 min with adequate strength (>200 MVUs) -Continue Mg and PCN ppx, had received adequate dosing -Will recheck in 2 hours Mg check @0155 -Denies MALAGON, vision changes, chest pain -Reflexes 3+, hyperreflexive -RR adequate, CTAB -A&O x3 Discussed w/ Dr. Michel Addendum - Attending - Attending Attestation Date/Time: 12/04/18 3587 I personally evaluated the patient and discussed the management with Dr. Mejia. I agree with and repeated the History, Examination, Assessment and Plan documented above with any addition or exceptions noted below. Currently moderate variability, + accels, no decels. Will monitor closely and recheck ~1 hour after last.
[2018-12-04] MEDS ORDERED: Fentanyl 4 mcg/Bup 0.1% Cadd 100 ML ONE (15:26)
--- NOTE | 2018-12-04 15:38 | PDOC.LDPN ---
Labor & Delivery Progress Note - Subjective Subjective: painful contractions (low back pain) - Objective General: breathing through contractions Uterine fundus: non tender SVE: /0 FHT: category 1 (last 10 min mod arabella, + accels, no decels; has had rare variable ) [place] contractions every: q2-4m AROM: clear fluid - Assessment (1) Elevated blood pressure affecting in third trimester, antepartum Code(s): O16.3 - UNSPECIFIED MATERNAL HYPERTENSION, THIRD TRIMESTER Current Visit: Yes Status: Acute -: Now unchanged x [address] epidural at patient request and recheck. + accel to scalp stim on exam. I feel status is reassuring currently. Plan for recheck post epidural and we have discussed possibility of at that time for failure to progress. If status becomes nonreassuring will proceed to immediately.
[2018-12-04] MEDS ORDERED: ePHEDrine/0.9% NaCl/PF SYRINGE 50 mg/10 ml SLOW IVP PRN (15:54)
[2018-12-04] MEDS ORDERED: Eucerin (Mineral Oil/Petrolatum,White) 30 gm Jar TOP PRN ×2 (15:54→17:12)
[2018-12-04] MEDS ORDERED: Ondansetron PF 4 MG/2 ML Vial IVP PRN ×2 (15:54→17:12)
[2018-12-04] MEDS ORDERED: Lactated Ringer's 500 ML IV PRN (15:54)
[2018-12-04] MEDS ORDERED: diphenhydrAMINE 50 MG/ML VIAL IVP PRN ×2 (15:54→17:12)
[2018-12-04] MEDS ORDERED: Acetaminophen 325 MG TAB PO PRN (15:54)
[2018-12-04] MEDS ORDERED: Promethazine HCl 25 MG/ML VIAL IM PRN ×2 (15:54→17:12)
[2018-12-04] MEDS ORDERED: Naloxone HCl 0.4 mg/ml Vial IVP PRN ×4 (15:54→17:12)
[2018-12-04] MEDS ORDERED: Communication Order-Pharmacy FS SCH ×2 (16:00→17:15)
[2018-12-04] MEDS ORDERED: Fentanyl 4 mcg/Bupivacaine 0.1% Cassette 100 ML EPIDURAL SCH (16:00)
--- NOTE | 2018-12-04 16:36 | PDOC.EVN ---
Event Note - Event Note Event Note: Patient s/p epidural with pressor x 1 after hypotension and now with pressures in the 140's. FHT now with minimal variability and late decelerations. Recheck unchanged. Will proceed to primary for cat II FHTs and FTP. I have notified anesthesia and they are on there way.
[2018-12-04] MEDS ORDERED: MORPHINE 5 MG/10 ML PF VIAL ONE (16:46)
[2018-12-04] MEDS ORDERED: Oxytocin 10 UNITS/ML VIAL ONE (16:47)
[2018-12-04] MEDS ORDERED: Lidocaine 2% MPF 10 ML AMP (For Epidural Use) ONE (16:47)
[2018-12-04] MEDS ORDERED: Azithromycin 500 MG in Syringe 0 ML IVPB SCH (17:00)
[2018-12-04] MEDS ORDERED: Naloxone HCl 0.4 mg/ml Vial IV PRN (17:12)
[2018-12-04] MEDS ORDERED: Promethazine HCl 25 MG SUPP PR PRN (17:12)
[2018-12-04] MEDS ORDERED: Ondansetron HCl/PF 4 MG/2 ML Vial IVP PRN (17:12)
[2018-12-04] MEDS ORDERED: Meperidine HCl/PF 25 MG/ML VIAL SLOW IVP PRN (17:12)
[2018-12-04] MEDS ORDERED: HYDROmorphone 2 MG/ML VIAL SLOW IVP PRN (17:12)
[2018-12-04] MEDS ORDERED: L&D-Morphine 4 MG/ML VIAL SLOW IVP PRN (17:12)
[2018-12-04] MEDS ORDERED: Ketorolac Tromethamine 30 MG/ML VIAL IVP SCH (17:15)
[2018-12-04] MEDS ORDERED: Azithromycin 500 MG VIAL ONE (17:26)
[2018-12-04] MEDS ORDERED: Lidocaine PF 1% 10 MG/ML ML IJ ONE (17:53)
[2018-12-04] MEDS ORDERED: Lidocaine 1% (PF) 30 ML VIAL ONE (17:54)
[2018-12-04] MEDS ORDERED: Fentanyl 100 MCG/2 ML VIAL ONE (17:55)
[2018-12-04] MEDS ORDERED: Azithromycin 500 MG in Sodium Chloride 0.9% 250 ML 250 ML IVPB SCH (18:00)
[2018-12-04] MEDS ORDERED: Ketorolac Tromethamine 30 MG/ML VIAL ONE (18:39)
[2018-12-04] MEDS: Ketorolac Tromethamine 30 MG/ML VIAL IVP PRN (18:48)
[2018-12-04] MEDS ORDERED: Adacel (T-DAP) 0.5 ML SYRINGE IM ONE (19:38)
[2018-12-04] MEDS ORDERED: Calcium Gluconate 4.6 MEQ in Sodium Chloride 0.9% 100 ML IVPB PRN (19:38)
[2018-12-04] MEDS ORDERED: Simethicone Chewable 80 MG TAB PO PRN (19:38)
[2018-12-04] MEDS ORDERED: Lanolin Ointment 7 GM TUBE TOP PRN (19:38)
[2018-12-04] MEDS ORDERED: Bisacodyl 10 MG SUPP PR PRN (19:38)
[2018-12-04] MEDS ORDERED: Misoprostol 200 MCG TAB PR PRN (19:38)
[2018-12-04] MEDS ORDERED: diphenhydrAMINE 25 MG CAP PO PRN (19:38)
--- NOTE | 2018-12-04 20:55 | DN ---
DATE OF PROCEDURE: 12/04/2018 RESIDENT SURGEONS: 1. Mao Marie MD, PGY-2. 2. Len Rubi, PGY-1. PROCEDURE PERFORMED: Primary low-transverse section. PREOPERATIVE DIAGNOSES: 1. Term intrauterine . 2. Preeclampsia with severe range blood pressures. 3. Non-reassuring heart tones. POSTOPERATIVE DIAGNOSES: 1. Term intrauterine . 2. Preeclampsia with severe range blood pressures. 3. Non-reassuring heart tones. ANESTHESIA: Epidural. INDICATIONS: This patient is a 23-year-old, G1, P0, at 36 weeks gestation, who presented for primary due to non-reassuring heart tones and failure to progress. PROCEDURE IN DETAIL: After risks, benefits, and alternatives were explained to the patient, she gave an informed consent. Preoperative antibiotics included cefazolin 2 g IV and azithromycin 500 mg IV. The patient was taken to the operating room. An epidural was already in place. She was bolused with anesthesia. She was placed in the supine position with the left tilt, and prepped and draped in the usual sterile fashion. A Pfannenstiel incision was made with a scalpel and carried down to the level of the fascia, which was sharply nicked. The fascia was extended bilaterally bluntly. The inferior and superior edges of the cut fascial edges were elevated with Summer clamps, and the underlying rectus muscles were sharply and bluntly dissected free. The recti were divided digitally and retracted manually. Peritoneum was entered bluntly and entered manually. Bladder blade was placed. A low transverse score was made with a scalpel and the uterus was entered in the midline with a scalpel. Clear fluid was seen and the hysterotomy was extended manually. was noted to be vertex occiput posterior and easily delivered by fundal pressure. Mouth and nares were bulb suctioned. Cord clamped and cut and grossly normal female infant was handed to waiting nurse. Cord gas was obtained and then cord blood was obtained. Placenta was manually extracted, found to be intact with 3-vessel cord, and was sent for pathology. Uterus was externalized, and the endometrium was curetted with a dry lap. It should be noted on the posterior portion of the uterus, there was a lot of edema noted likely from prolonged labor. The bladder blade was replaced and the uterus was closed with a 1 Monocryl in a running locking fashion. It was then followed by running horizontal nonlocking 1 Monocryl imbricating suture. Following this, hemostasis was noted. Abdomen was irrigated with saline and suctioned free of clots. Uterus was internalized, and the hysterotomy was again noted to be hemostatic. The peritoneum was closed with 3-0 chromic in a running nonlocking fashion. Fascia was closed with a running nonlocking 0 PDS suture. Subcutaneous tissue was irrigated and there were no bleeders. Skin was approximated with running subcuticular stitch. All counts were correct. The patient tolerated the procedure well and was taken to recovery room in stable condition. EBL was estimated to be 800. QBL was still pending at this time. COMPLICATIONS: Again, there was some posterior edema noted on the posterior uterus. SPECIMENS: Cord blood and cord gas sent to lab, and cord blood sent for blood type. FINDINGS: Grossly normal female with Apgars of 8 and 9. Grossly normal placenta with 3-vessel cord was sent for pathology. DRAINS: [place] to gravity draining clear urine. Job ID: [id number]
[2018-12-04] MEDS ORDERED: Docusate Calcium (SURFAK) 240 MG CAP PO SCH (21:00)
--- NOTE | 2018-12-04 21:22 | PDOC.EVN ---
Event Note - Event Note Event Note: Mag check/post op check S: Pt resting comfortably, reports good pain control and has no complaints at this time. Denies vaginal bleeding, nursing staff corroborates no abnormal bleeding. No MALAGON/CP/SOB. O: Vt: 118/82, HR 90, RR 12 Urine output: 200ml/hr since surgery GEN: no distress, resting CARD: RRR, no murmur PULM: CTAB, no wheezing Abdomen: incision bandaged with no blood saturating pad NEURO: +2 patellar and biceps reflexes A/P: Doing well overall, will continue to monitor and keep q4hr Mg checks
[2018-12-05] MEDS: Ketorolac Tromethamine 30 MG/ML VIAL IVP PRN (00:56)
--- NOTE | 2018-12-05 01:08 | PDOC.EVN ---
Event Note - Event Note Event Note: Mag check S: Pt resting comfortably, reports good pain control and has no complaints at this time. No MALAGON/CP/SOB. O: Vt: 125/85, HR 95, RR 12 Urine output: 200ml/hr since last check GEN: no distress, resting CARD: RRR, no murmur PULM: CTAB, no wheezing Abdomen: incision bandaged with no blood saturating pad NEURO: +2 patellar and biceps reflexes A/P: Doing well overall, will continue to monitor and keep q4hr Mg checks
[2018-12-05] MEDS ORDERED: HYDROcodone/Acetaminophen 5/325 mg Tablet PO PRN ×2 (05:00)
[2018-12-05] MEDS: Magnesium Sulfate 20 gm/500 ml 20 GM/500 ML BAG IVPB SCH (05:50)
--- NOTE | 2018-12-05 06:04 | PDOC.EVN ---
Event Note - Event Note Event Note: Mag check S: Pt resting comfortably, reports good pain control and has no complaints at this time. No MALAGON/CP/SOB. Pt does report that IV in L hand blew through and caused her hand to swell. IV has since been replaced and swelling has improved. O: Vt: 121/80, HR 98, RR 12 Urine output: 200ml/hr since last check GEN: no distress, resting CARD: RRR, no murmur PULM: CTAB, no wheezing Abdomen: incision bandaged with no blood saturating pad NEURO: +2 patellar and biceps reflexes EXT: +1 non pitting edema in L hand A/P: Doing well overall, will continue to monitor and keep q4hr Mg checks
--- NOTE | 2018-12-05 07:18 | PDOC.OBMPN ---
FMR OB LDICU PN: Subj - Interval History Chief Complaint: No complaint offered Interval History: Pt resting comftorbly. Reports pain being controlled. Light Lochia reported FMR OB LDICU PN: Obj - Maternal Vital signs: BP: [115/82] HR: [82] RR: [18] Pox: [100]% on [RA] - Urine output I&O: 12/04/18 12/05/18 12/06/18 06:59 06:59 06:59 Intake Total 240 Output Total 600 Balance -360 R OB LDICU PN: Exam - Physical Exam General: NAD, awake, alert and oriented HEENT: normocephalic and atraumatic, PERRLA, grossly normal vision, grossly normal hearing Neck: supple, trachea midline Heart: RRR, normal S1/S2, no murmurs/rubs/gallops, pulses present, no edema General: CTAB, no respiratory distress, good air movement, no rales/rhonchi, no wheezing Abdomen: soft, gravid, fundus(cm), non-tender, bowel sound present, no masses Musculoskeletal: normal gait and station, FROM in all four extremities Neurological: sensation to pain,touch and proprioception grossly normal, DTR +2 Skin: no rash, capillary refill <2 seconds : incision healing well, no erythema, no edema, no drainage, appropriately tender Psychiatric: intact recent and remote memory, normal mood and affect - Pelvic Exam : normal lochia R OB LDICU PN: Data - Labs Lab results: Laboratory Results - last 24 hr 12/04/18 12/04/18 17:15 19:53 Cord ABG pH 7.246 L Magnesium 5.5 H R OB LDICU PN:A/P - Problem List (1) Pre-eclampsia Current Visit: Yes Status: Acute Code(s): O14.90 - UNSPECIFIED PRE-ECLAMPSIA , UNSPECIFIED TRIMESTER (2) Current Visit: Yes Status: Acute Qualifiers: Weeks of gestation: 36 weeks Qualified Code(s): Z3A.36 - 36 weeks gestation of (3) delivery delivered Current Visit: Yes Status: Resolved Code(s): O82 - ENCOUNTER FOR DELIVERY WITHOUT INDICATION (4) GBS carrier Current Visit: Yes Status: Acute Code(s): Z22.330 - CARRIER OF GROUP B STREPTOCOCCUS Disposition: 23yo ->1 @36 weeks delivered via primary LTCS on 12/04 due to NRFHT and Failure to Progress. Pt induced for labor due to Preeclampsia with severe range pressures. -Post Op Day 1. Pain well controlled at this time. Incision intact. No redness or drainage noted. Pt passing gas. Has not eaten much PO. Pt is bed bound due to Pre-E tx. Will want to advise ambulation once off later this evening. Reports light lochia at this time. -Pre-E w/ Severe Range BP Pt on Mg post op 24 hours. No severe range pressures noted. Pt doing well. Denies any chest pain, SOB, lightheadness. Pt will be done with tx later this evening. Pre-E labs WNL Discussion: Date/Time: 12/05/18 0716 This H&P was discussed with [] and [] who agree with the above documentation and plan. Addendum - Attending - Attending Attestation Date/Time: 12/05/18 0895 I personally evaluated the patient and discussed the management with Dr. Marie and Dr. Louis I agree with the History, Examination, Assessment and Plan documented above with any addition or exceptions noted below. 23 yo female s/p LTCS for AOD on 12/04/18 at 1706 HD# 4 POD/PPD# 1 Patient doing well. Denies headache, visual changes, SOB, and CP. Swelling is slowing improving. Reports feeling really "wiped out." VS reviewed. Normotensive. Urine out put over last 2 hours 725 mL and 275 mL NAD. RRR. No murmurs. CTAB. No W/C/R. Fundus firm. Nontender. -2 below umbilicus. 1+ pitting edema bilaterally. Nonpitting to upper extremities due to IV fluids. 1. s/p PLTCS: Incision healing well. No s/sx of infections. Continue pain control. Bedrest for present due to seizure precautions. 2. preeclampsia with severe features: Severe range blood pressures on multiple occasions during extended monitoring. Persistent clonus on exam. Asymptomatic. Urine protein 279 however there was an error in collection. Plt 195 to 179. AST 18. Cr mild elevation to 0.75. Uric acid elevated to 5.6. IOL started on . Now s/p PLTCS on 12/04/18 at 1706. Currently on mag for seizure ppx. BP has returned to normal. Remains asymptomatic. Good UOP throughout. Will continue close monitoring. Possible consider early stop of mag if L&D room needed. Will need ASA with future pregnancies. 3. polyhydramnios 4. GBS positive: s/p treatment > 4 hours 5. BMI 42: Lifestyle changes. 6. : 1st time mother. consulted. 7. delivery at 36.0 wks: Medically indicated. Dispo: Continue mag ppx at this time. Monitor closely. Bernardo
[2018-12-05] MEDS: Ibuprofen 800 MG TAB PO SCH ×4 (07:20→23:05)
[2018-12-05] MEDS ORDERED: Prenatal Vitamin 1 TAB PO SCH (09:00)
[2018-12-05 09:02] LABS: Hemoglobin 13.1 g/dL (12.0-16.0); Mean Corpuscular HGB CONC 32.8 g/dL (32.0-36.0); Mean Corpuscular Volume 97.7 fL (78.0-98.0); Mean Platelet Volume 8.1 fL (7.4-10.4); Platelet Count 169 thou/uL (130-400); RBC Distribution Width 13.8 % (11.5-14.5); Red Blood Cell (RBC) Count 4.11 mill/uL (4.20-5.40); White Blood Cell (WBC) Count 18.1 thou/uL (4.8-10.8)
--- NOTE | 2018-12-05 12:22 | PDOC.EVN ---
Event Note - Event Note Event Note: S: Pt resting comfortably, reports she feels somewhat loopy on the mag but has no complaints at this time. No headache, no vision changes, no abdominal pain, no chest pain, no SOB. Minimal swelling in L hand (IV blew this AM) and bilat feet. O: Vt: 134/75, HR 82 Urine output: 300ml/hr since last check GEN: no distress, resting CARD: RRR, no murmur PULM: CTAB, no wheezing Abdomen: incision bandaged with no blood saturating pad NEURO: 2+ patellar and biceps reflexes EXT: 1+ pitting edema in L hand, none in right hand, trace pitting edema BLE A/P: Discontinue magnesium, transfer to post floor for post care. Addendum - Attending - Attending Attestation Date/Time: 12/06/18 1300 I personally evaluated the patient and discussed the management with Dr. Rod I agree with the History, Examination, Assessment and Plan documented above with any addition or exceptions noted below. 23 yo female s/p LTCS for AOD on 12/04/18 at 1706 HD# 4 POD/PPD# 1 Unchanged. Continues to remain asymptomatic. VS reviewed. Normotensive. No mild range or even borderline blood pressures. Urine out put 300 mL over last hour NAD. RRR. No murmurs. CTAB. No W/C/R. Fundus firm. Nontender. -2 below umbilicus. 1+ pitting edema bilaterally. Nonpitting to upper extremities due to IV fluids. 1. s/p PLTCS: Incision healing well. No s/sx of infections. Continue pain control. Ok to ambulate with assistance. Will transfer early to . 2. preeclampsia with severe features: Has been on mag for 20 hours after delivery. Seizure risk low at this point. Will stop mag early to allow L&D room to be free for laboring patient. Discussed with laborist who agree with early stop. Will continue to monitor on pp over the next 4 hours for complete 24 hour monitoring but unable to continue IV mag sulfate. Remains asymptomatic. Good diuresis. No clonus. Blood pressures normotensive on low end. 3. polyhydramnios 4. GBS positive: s/p treatment > 4 hours 5. BMI 42: Lifestyle changes. 6. : 1st time mother. consulted. 7. delivery at 36.0 wks: Medically indicated. Dispo: Ok to transfer. Repeat monitoring in 4 hours. Continue strict I/Os. Due to mild edema will give dose of lasix to help with fluid management. Bernardo
[2018-12-05] MEDS ORDERED: diphenhydrAMINE 25 MG CAP PO PRN (12:40)
[2018-12-05] MEDS ORDERED: Lanolin Ointment 7 GM TUBE TOP PRN (12:40)
[2018-12-05] MEDS ORDERED: Furosemide 20 MG/2 ML VIAL SLOW IVP SCH (12:40)
[2018-12-05] MEDS ORDERED: Ondansetron PF 4 MG/2 ML Vial IVP PRN (12:40)
[2018-12-05] MEDS ORDERED: Acetaminophen 325 MG TAB PO PRN (12:40)
[2018-12-05] MEDS ORDERED: Simethicone Chewable 80 MG TAB PO PRN (12:40)
[2018-12-05] MEDS: Famotidine 20 MG TAB PO SCH ×2 (13:11→13:14)
[2018-12-05] MEDS: Misoprostol 100 MCG TAB VAG SCH ×2 (13:11→13:12)
[2018-12-05] MEDS: Penicillin G Potassium 2.5 MILL.UNITS in Sodium Chloride 0.9% 50 ML IVPB SCH (13:14)
[2018-12-05] MEDS: Pen G 2.5 MILL.UNITS/50 ML BAG IVPB SCH (13:14)
[2018-12-05] MEDS ORDERED: Sodium Chloride 0.9% 10 ML ONE (14:32)
[2018-12-05] MEDS: HYDROcodone/Acetaminophen 5/325 mg Tablet PO PRN ×2 (14:35→19:02)
[2018-12-05] MEDS: Docusate Calcium (SURFAK) 240 MG CAP PO SCH (23:04)
[2018-12-06] MEDS: HYDROcodone/Acetaminophen 5/325 mg Tablet PO PRN ×5 (01:11→21:22)
[2018-12-06] MEDS: Ibuprofen 800 MG TAB PO SCH ×4 (06:20→21:19)
--- NOTE | 2018-12-06 08:23 | PDOC.OBPPN ---
FMR OB PN: Subj - Interval History Day: 2 Chief Complaint: Pt reports having some pain with movment. Interval History: Pain medicine helping. Passing Gas. No BM. Reports normal lochia. FMR OB PN: Obj - Maternal Vital signs: BP: [138/76] HR: [92] RR: [20] Tmax: [99.0] Pox: [98]% on [RA] - Urine output I&O: 12/05/18 12/06/18 12/07/18 06:59 06:59 06:59 Output Total 2300 Balance -2300 - Lochia Lochia: Reports lochia the same amount as period at this time. - Pain Management Intervention: oral medication (Pain medicine helping. Still has pain with movement.) FMR OB PN: Exam - Physical Exam General: NAD, awake, alert and oriented HEENT: normocephalic and atraumatic, PERRLA, grossly normal vision, grossly normal hearing Neck: supple, trachea midline Heart: RRR, normal S1/S2, no murmurs/rubs/gallops, pulses present, no edema General: CTAB, no respiratory distress, good air movement, no rales/rhonchi, no wheezing Abdomen: soft, fundus(cm) (Below the umbilicus. Firm. Mildly tender to palpation.), bowel sound present, no masses Neurological: sensation to pain,touch and proprioception grossly normal, DTR +2 Skin: no rash, capillary refill <2 seconds : incision healing well, no erythema, no edema, no drainage, appropriately tender Psychiatric: intact recent and remote memory, normal mood and affect FMR OB PN: Data - Labs Lab results: Laboratory Results - last 24 hr 12/05/18 08:43 WBC 18.1 H RBC 4.11 L Hgb 13.1 Hct 40.1 MCV 97.7 MCH 32.0 H MCHC 32.8 RDW 13.8 Plt Count 169 MPV 8.1 FMR OB PN: A/P - Problem List (1) Pre-eclampsia Current Visit: Yes Status: Acute Code(s): O14.90 - UNSPECIFIED PRE-ECLAMPSIA , UNSPECIFIED TRIMESTER (2) Current Visit: Yes Status: Acute Qualifiers: Weeks of gestation: 36 weeks Qualified Code(s): Z3A.36 - 36 weeks gestation of (3) delivery delivered Current Visit: Yes Status: Resolved Code(s): O82 - ENCOUNTER FOR DELIVERY WITHOUT INDICATION (4) GBS carrier Current Visit: Yes Status: Acute Code(s): Z22.330 - CARRIER OF GROUP B STREPTOCOCCUS Disposition: 23yo ->1 @36 weeks delivered via primary LTCS on 12/04 due to NRFHT and Failure to Progress. Pt induced for labor due to Preeclampsia with severe range pressures. -Post Op Day 2. Pain with movement. Some pain may be related to gas. Advised to use simethicone PRN. Incision intact. No redness or drainage noted. Pt passing gas. Has not eaten much PO. Advised pt to get up and move around often if possible. No signs of swelling at this time. Reports lochia amount same as period. No sign of excessive bleeding. -Pre-E w/ Severe Range BP Pt finished Mg yesterday afternoon. No severe range pressures noted. Pt doing well. Denies any chest pain, SOB, lightheadness. Pt I&O over 24 hours show avg hourly urine output as 95 ml/hr. Will give another dose of lasix at this time to help with perfusion. Pre-E labs WNL GBS carrier Adquately tx with penicillin ppx. Given appropriate abx and azithromycin preop before surgery. Discussion: Date/Time: 12/06/18 0820 This H&P was discussed with [] and [] who agree with the above documentation and plan. Addendum - Attending - Attending Attestation Date/Time: 12/06/18 1221 I personally evaluated the patient and discussed the management with Dr. Marie I agree with the History, Examination, Assessment and Plan documented above with any addition or exceptions noted below. 23 yo female s/p LTCS for AOD on 12/04/18 at 1706 HD# 5 POD/PPD# 2 Doing well. Minimal lochia. Pain controlled on PO meds. Denies headache, dizziness, CP, SOB, and visual changes. VS reviewed. Mild range (per new guidelines but < 140/90) UOP -2300 mL NAD. RRR. No murmurs. CTAB. No W/C/R. Fundus firm. Nontender. -2 below umbilicus. Trace edema to BLE 1. s/p PLTCS: Incision healing well. No s/sx of infections. Continue pain control. Encourage ambulation. 2. preeclampsia with severe features: Asymptomatic. s/p 20 hours of mag sulfate. Still with good diuresis. Continue to monitor BP throughout the day. Will need ASA with future pregnancies. 3. polyhydramnios 4. GBS positive: s/p treatment > 4 hours 5. BMI 42: Lifestyle changes. 6. : 1st time mother. consulted. 7. delivery at 36.0 wks: Medically indicated. Dispo: Encourage ambulation. Monitor pain control. Likely d/c tomorrow. ABrayMD
[2018-12-06] MEDS ORDERED: Furosemide 20 MG/2 ML VIAL SLOW IVP SCH (08:30)
[2018-12-06] MEDS: Docusate Calcium (SURFAK) 240 MG CAP PO SCH ×2 (09:29→21:19)
[2018-12-06] MEDS: Prenatal Vitamin 1 TAB PO SCH (09:29)
[2018-12-06] MEDS: Simethicone Chewable 80 MG TAB PO SCH ×3 (12:46→21:20)
[2018-12-07] MEDS: Ibuprofen 800 MG TAB PO SCH ×2 (06:23→14:51)
[2018-12-07 08:09] VITALS: BP 123/64; TEMP 98.6
[2018-12-07] MEDS ORDERED: Polyethylene Glycol 3350 17 GM Packet PO SCH (09:00)
--- NOTE | 2018-12-07 09:04 | PDOC.OBPPN ---
FMR OB PN: Subj - Interval History Hospital Day: 6 Day: 3 Chief Complaint: Incision pain and R. ankle sore Interval History: Pt reports having BM. Loose stools. Reports moving, Tolerating PO FMR OB PN: Obj - Maternal Vital signs: BP: [123/64] HR: [89] RR: [18] Tmax: [98.6] Pox: [98]% on [RA] - Urine output I&O: 12/06/18 12/07/18 12/08/18 06:59 06:59 06:59 Intake Total 1200 Output Total 2300 1550 Balance -2300 -350 - Lochia Lochia: Reports about the same amount of lochia as a period - Pain Management Pain scale: 3 Intervention: oral medication FMR OB PN: Exam - Physical Exam General: NAD, awake, alert and oriented HEENT: normocephalic and atraumatic, PERRLA Neck: supple, trachea midline Chest: non-tender to palpation Breast: symmetric, non-tender, no palpable masses Heart: RRR, normal S1/S2, no murmurs/rubs/gallops, pulses present General: CTAB, no respiratory distress, good air movement, no wheezing, no retractions Abdomen: soft, gravid, bowel sound present, no masses Musculoskeletal: normal gait and station, pulses present Neurological: sensation to pain,touch and proprioception grossly normal Skin: no rash, capillary refill <2 seconds : bandage intact, incision healing well, no erythema, no edema, no drainage Lymphatic: no unusual bruising or bleeding, no purpura, no petechia Psychiatric: intact recent and remote memory, normal mood and affect FMR OB PN: A/P - Problem List (1) Pre-eclampsia Current Visit: Yes Status: Acute Code(s): O14.90 - UNSPECIFIED PRE-ECLAMPSIA , UNSPECIFIED TRIMESTER (2) Current Visit: Yes Status: Acute Qualifiers: Weeks of gestation: 36 weeks Qualified Code(s): Z3A.36 - 36 weeks gestation of (3) delivery delivered Current Visit: Yes Status: Resolved Code(s): O82 - ENCOUNTER FOR DELIVERY WITHOUT INDICATION (4) GBS carrier Current Visit: Yes Status: Acute Code(s): Z22.330 - CARRIER OF GROUP B STREPTOCOCCUS Disposition: 23yo ->1 @36 weeks delivered via primary LTCS on 12/04 due to NRFHT and Failure to Progress. Pt induced for labor due to Preeclampsia with severe range pressures. -Post Op Day 3. Pain with movement. Advised to use simethicone PRN. Incision intact. No redness or drainage noted. Pt tolerating PO. Has had BM. Pt reported having R. ankle pain. no sign of swelling at this time. Pt had been bed bound to Mg tx for extended period of time. Will check venous doppler in LER to rule out of DVT Reports lochia amount same as period. No sign of excessive bleeding. -Pre-E w/ Severe Range BP Pt finished Mg yesterday afternoon. No severe range pressures noted. Pt doing well. Denies any chest pain, SOB, lightheadness. Pt I&O over 24 hours show avg hourly urine output as 65ml/hr. Advised pt to drink plenty of fluid GBS carrier Adquately tx with penicillin ppx. Given appropriate abx and azithromycin preop before surgery. Polyhydramnios Discussion: Date/Time: 12/07/18 0903 This H&P was discussed with [] and [] who agree with the above documentation and plan. Addendum - Attending - Attending Attestation Date/Time: 12/07/18 1155 I personally evaluated the patient and discussed the management with Dr. Marie I agree with the History, Examination, Assessment and Plan documented above with any addition or exceptions noted below. 23 yo female s/p LTCS for AOD on 12/04/18 at 1706 HD# 6 POD/PPD# 3 Reports right leg/ankle pain that started last night. No change in swelling. Achy pain. Notes some improvement this morning. Pain controlled on PO meds. Denies headache, dizziness, CP, SOB, and visual changes. VS reviewed. Normotension to Mild range (per new guidelines) NAD. RRR. No murmurs. CTAB. No W/C/R. Fundus firm. Nontender. -2 below umbilicus. Trace edema to BLE. FROM. Nontender leg/foot bilateral. 1. s/p PLTCS: Incision healing well. No s/sx of infections. Pain controlled. + Flatus. Ambulating. Meeting milestones. 2. preeclampsia with severe features: Asymptomatic. Mag off since 12/05/18. Still with good diuresis. No BP >140/90. Will need ASA with future pregnancies. 140/90 highes pp and only x1. 3. polyhydramnios 4. GBS positive: s/p treatment > 4 hours 5. BMI 42: Lifestyle changes. 6. : 1st time mother. consulted. Still no milk production. 10% weight loss . Encouraged supplementation. 7. delivery at 36.0 wks: Medically indicated. Dispo: Meeting milestones. No need for BP medication. Ok to d/c to home. Follow up in 1 wk for incision check and BP evaluation. Preeclampsia risk discussed. Raymundo
[2018-12-07] MEDS: Docusate Calcium (SURFAK) 240 MG CAP PO SCH (09:30)
[2018-12-07] MEDS: Prenatal Vitamin 1 TAB PO SCH (09:30)
[2018-12-07] MEDS: Simethicone Chewable 80 MG TAB PO SCH ×2 (09:31→14:52)
--- NOTE | 2018-12-07 12:31 | ULT ---
Venous duplex sonogram right lower extremity HISTORY: Right leg pain and edema. FINDINGS: The right common femoral vein and greater saphenous junction were evaluated along with the femoral, deep femoral, popliteal, and posterior tibial vein. There is good color and spectral Doppler flow, compression, and augmentation. IMPRESSION: No sonographic evidence of DVT within the right lower extremity.
[2018-12-07] MEDS: HYDROcodone/Acetaminophen 5/325 mg Tablet PO PRN (13:42)
== END 2018-12-07 16:30 | disposition home or self-care (01) | DRG 788 ==
LOC: ERS 15:42 → 3SW 20:45 → OBSVTOIN 12-03 09:25 → L&D 12-03 12:30 → 3SW 12-05 14:30
PROVIDERS: ADMIT Emergency Medicine; ATTEND Emergency Medicine
PROC: 3E0P7VZ Introduction of Hormone into Female Reproductive, Via Natural or Artificial Opening (ICD-10-PCS; 2018-12-03)
PROC: 10D00Z1 Extraction of Products of Conception, Low, Open Approach (ICD-10-PCS; principal; 2018-12-04)
DX: O14.14 Severe pre-eclampsia complicating childbirth (principal); O40.3XX0 Polyhydramnios, third trimester, not applicable or unspecified; O99.62 Diseases of the digestive system complicating childbirth; K21.9 Gastro-esophageal reflux disease without esophagitis; O99.824 Streptococcus B carrier state complicating childbirth; Z3A.36 36 weeks gestation of pregnancy; Z37.0 Single live birth; O61.0 Failed medical induction of labor; I49.5 Sick sinus syndrome; O99.42 Diseases of the circulatory system complicating childbirth; O76 Abnormality in fetal heart rate and rhythm complicating labor and delivery
CPT/HCPCS: 36415; 51702; 59025; 76805; 76815; 76819; 80053; 81003; 82570; 82805; 83735; 84156; 84550; 85025; 85027; 86780; 86850; 86900; 86901; 87077; 87081; 87340; 87389; 88307; 99285; J0456; J0690; J0702; J1885; J1940; J2001; J2270; J2405; J2540; J2590; J3010; J3475; J3490; J7050

== ENCOUNTER 2025-07-03 00:16 | Emergency (ER) | payer SELFPAY | END 2025-07-03 04:45 | disposition home or self-care (01) | LOC: ERS 00:16 | DX: S61.011A Laceration without foreign body of right thumb without damage to nail, initial encounter (principal); Z23 Encounter for immunization; W26.0XXA Contact with knife, initial encounter; Y93.G3 Activity, cooking and baking | CPT/HCPCS: 12002; 90471; 90715 ==